=== PATIENT | male | born 1940 | race Two or more races ===

== ENCOUNTER 2017-08-12 12:10 | Emergency (ER) | payer MEDICARE, OTHER ==
[~2017-08-12] VITALS: Ht 170.2 cm; Wt 87.5 kg
--- NOTE | 2017-08-12 12:15 | NUR ---
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 NAD NOTED, VSS, RESP EVEN AND UNLABORED, PT WAS PUT ON MONITOR, WAITING FOR MD DAVENPORT.
[2017-08-12] MEDS ORDERED: PROPOFOL 0 ML IV ONE (13:16)
[2017-08-12 14:20] VITALS: BP 145/89
--- NOTE | 2017-08-12 14:20 | NUR ---
Patient discharged to home in stable condition. Written and verbal after care instructions given. Patient verbalizes understanding of instruction.IV removed. Catheter intact and site benign. Pressure and 4x4 applied to site. No bleeding noted. Prescription given.
== END 2017-08-12 14:21 | disposition home or self-care (01) ==
LOC: ER 12:20
DX: S49.91XA Unspecified injury of right shoulder and upper arm, initial encounter (principal); I10 Essential (primary) hypertension; W01.0XXA Fall on same level from slipping, tripping and stumbling without subsequent striking against object, initial encounter; Y93.89 Activity, other specified; Y92.89 Other specified places as the place of occurrence of the external cause; Y99.8 Other external cause status
CPT/HCPCS: 73030-TC; A4606; J2704; J7030; Z7610

== ENCOUNTER 2018-11-28 14:06 | Inpatient (IN) | payer MEDICARE, OTHER ==
[~2018-11-28] VITALS: Ht 170.2 cm; Wt 77.6 kg
--- NOTE | 2018-11-28 14:15 | NUR ---
BIB RA 39 FROM HOME,AMS DESCRIBED "WOKE UP LATE THIS MORNING AND NOT WANTING TO DO STUFF THAT HE NORMALLY DOES". ON ROOM AIR, BREATHING EVENLY AND UNLABORED. DAUGHTER AT BEDSIDE. CONNECTED TO THE MONITOR AND PULSE OX. KEPT COMFORTABLE, WILL CONTINUE TO MONITOR ACCORDINGLY. JOAQUIN CATH IN PLACED PER MD ORDERED.
[2018-11-28 14:46] LABS: BASOPHILS % (AUTO) 0.1 % (0.0-2.0); EOSINOPHILS % (AUTO) 0.5 % (0.0-6.0)
[2018-11-28 14:51] LABS: HEMATOCRIT 38 % (39-51); HEMOGLOBIN 13.6 g/dL (13.5-17.5); LYMPHOCYTES # (AUTO) 0.7 /CMM (0.8-4.8); LYMPHOCYTES % (AUTO) 7.6 % (20.0-44.0); MEAN CORPUSCULAR HGB CONC 36 g/dl (31.0-36.0); MEAN CORPUSCULAR VOLUME 90 fL (80-96); MONOCYTES # (AUTO) 0.8 /CMM (0.1-1.30); MONOCYTES % (AUTO) 8.4 % (2.0-12.0); NEUTROPHILS # (AUTO) 7.7 /CMM (1.8-8.9); NEUTROPHILS % (AUTO) 83.4 % (43.0-81.0); PLATELET COUNT (AUTO) 160 /CMM (150-450); RED BLOOD CELL COUNT(AUTO) 4.19 MIL/uL (4.5-6.0); WHITE BLOOD COUNT (AUTO) 9.2 K/uL (4.3-11.0)
[2018-11-28 14:53] LABS: CALCIUM, SERUM 8.9 mg/dL (8.5-10.1); CARBON DIOXIDE 27 mmol/L (21-32); CHLORIDE 102 mmol/L (98-107); CREATININE 1.4 mg/dL (0.6-1.3); GLUCOSE 159 mg/dL (74-106); POTASSIUM 3.5 mmol/L (3.5-5.1); SODIUM SERUM 142 mmol/L (136-145); UREA NITROGEN, BLOOD 27 mg/dL (7-18)
--- NOTE | 2018-11-28 14:57 | NUR ---
urine collected and sent to lab
[2018-11-28 15:00] LABS: ALANINE AMINOTRANSFERASE 17 U/L (12-78); ALBUMIN 3.8 g/dL (3.4-5.0); ALKALINE PHOSPHATASE 68 U/L (46-116); ASPARTATE AMINOTRANSFERASE 19 U/L (15-37); BILIRUBIN,DIRECT 0.3 mg/dL (0.0-0.2); BILIRUBIN,TOTAL 2.2 mg/dL (0.2-1.0); LIPASE 119 U/L (73-393); TOTAL PROTEIN, SERUM 6.8 g/dL (6.4-8.2)
[2018-11-28] MEDS ORDERED: IV NS 0.9% 1,000 ML BAG IV ONE (15:00)
[2018-11-28 15:14] LABS: BILIRUBIN,URINE SMALL (NEGATIVE); BLOOD, URINE Negative Ery/uL (NEGATIVE); KETONES,URINE Negative (NEGATIVE); LEUKOCYTE ESTERASE ,URINE Negative (NEGATIVE); NITRITE, URINE Negative (NEGATIVE); PH,URINE 5.5 (5.0-8.0); PROTEIN,URINE 30 mg/dl (NEGATIVE); UGLUCOSE Negative (NEGATIVE)
[2018-11-28 15:15] LABS: APPEARANCE,URINE HAZY (CLEAR); COLOR,URINE DARK YELLOW (YELLOW)
[2018-11-28] MEDS ORDERED: ACETAMINOPHEN 650 MG/SUPP.RECT RC ONE ×2 (15:18→15:30)
[2018-11-28] MEDS ORDERED: CEFTRIAXONE 1GM BAG (ER ONLY) 50 ML IV ONE (15:18)
[2018-11-28 15:26] LABS: BACTERIA,URINE Few /HPF (None Seen); RBC,URINE 0-2 /HPF (0-2); SQUAMOUS EPITHELIAL CELL,UR Few /HPF (None Seen)
[2018-11-28] MEDS ORDERED: CEFTRIAXONE 1GM BAG (ER ONLY) 1 GM/50 ML PIGGYBACK IV ONE (15:30)
--- NOTE | 2018-11-28 16:02 | NUR ---
CALLED [facility]. METER REPAIRER DR LAYNE
--- NOTE | 2018-11-28 17:16 | NUR ---
CALLED HOUSE SUP FOR [facility] BED
--- NOTE | 2018-11-28 17:31 | NUR ---
[facility] BED 105 GIVEN
[2018-11-28] MEDS ORDERED: MEMA10TA PO (17:40)
[2018-11-28] MEDS ORDERED: ROSU10TA2 PO (17:40)
[2018-11-28] MEDS ORDERED: LOSA1TAB42 PO (17:40)
[2018-11-28] MEDS ORDERED: ESCI10TA PO (17:40)
[2018-11-28] MEDS ORDERED: METO-357 PO (17:40)
[2018-11-28] MEDS ORDERED: KETO120S3 TP (17:40)
[2018-11-28] MEDS ORDERED: KETOCONAZOLE CREAM TP (17:42)
[2018-11-28] MEDS ORDERED: COLE3.75 PO (17:42)
[2018-11-28] MEDS ORDERED: DICL1ADH11 TP (17:42)
[2018-11-28] MEDS ORDERED: SOLI5TAB2 PO (17:45)
[2018-11-28] MEDS ORDERED: RIVA1PAT3 TD (17:45)
--- NOTE | 2018-11-28 18:30 | NUR ---
Patient transported to [facility] accompanied by EMT and RN in no apparent distress noted. Eleyn at bedside to assumed care.
--- NOTE | 2018-11-28 18:45 | NUR ---
RN NOTE: RECEIVED PATIENT IN ROOM 105, TRANSFERRED VIA GURNEY ACCOMPANIED BY THE ER NURSE AND EMT TRANSPORT. PATIENT WAS TRANSFERRED TO BED AND CONNECTED THE PATIENT TO THE VOLTAGE INSPECTOR. PATIENT'S , MARCELA AND DAUGHTER WALE WAS PRESENT AT THE BEDSIDE. PER FAMILY'S REQUEST, THEY DO NOT WANT THE PATIENT TO CHANGE TO A CLEAN HOSPITAL GOWN AND REFUSED VITAL SIGNS. (R) HAND 20G IV SITE NOTED PATENT AND INTACT WRAPPED WITH KERLIX. WILL ENDORSE TO PM SHIFT NURSE FOR ADMISSION.
[2018-11-28] MEDS ORDERED: IV NS 0.9% 1,000 ML IV PRN (19:18)
[2018-11-28] MEDS ORDERED: MAGNESIUM HYDROXIDE 30 ML UDC PO PRN (19:30)
[2018-11-28] MEDS ORDERED: ONDANSETRON HCL/PF 4 MG/2 ML VIAL IVP PRN (19:30)
[2018-11-28] MEDS ORDERED: ACETAMINOPHEN 325 MG TABLET PO PRN (19:30)
[2018-11-28] MEDS ORDERED: HYDROCODONE/APAP 5/325MG 1 EACH TABLET PO PRN (19:30)
[2018-11-28] MEDS ORDERED: Z GUARD REMEDY 2 OZ OINT TP PRN (19:30)
[2018-11-28] MEDS ORDERED: HALOPERIDOL LACTATE INJ 5 MG/ML VIAL IM PRN (19:30)
[2018-11-28] MEDS ORDERED: MAG HYDROX/AL HYDROX/SIMETH 30 ML UDC PO PRN (19:30)
[2018-11-28 20:00] VITALS: BP 149/55
[2018-11-28] MEDS ORDERED: DEXTROSE 50%-WATER 50 ML DISP.SYRIN IV PRN (20:00)
[2018-11-28] MEDS: IV D5/ 0.9% NACL 1,000 ML IV PRN (20:11)
[2018-11-28] MEDS: BLOOD SUGAR DIAGNOSTIC 1 EACH STRIP IN SCH (23:52)
[2018-11-29] VITALS: BP 145/75
[2018-11-29 04:00] VITALS: BP 169/70
[2018-11-29] MEDS: BLOOD SUGAR DIAGNOSTIC 1 EACH STRIP IN SCH ×3 (06:02→17:34)
[2018-11-29 06:49] LABS: SERUM AMMONIA < 10 umol/L (11-32)
[2018-11-29 06:59] LABS: ALANINE AMINOTRANSFERASE 17 U/L (12-78); ALBUMIN 3.4 g/dL (3.4-5.0); ALKALINE PHOSPHATASE 59 U/L (46-116); ASPARTATE AMINOTRANSFERASE 24 U/L (15-37); CALCIUM, SERUM 9.1 mg/dL (8.5-10.1); CARBON DIOXIDE 30 mmol/L (21-32); CHLORIDE 105 mmol/L (98-107); CREATININE 1.3 mg/dL (0.6-1.3); GLUCOSE 120 mg/dL (74-106); PHOSPHORUS 2.8 mg/dL (2.5-4.9); POTASSIUM 3.7 mmol/L (3.5-5.1); SODIUM SERUM 141 mmol/L (136-145); TOTAL PROTEIN, SERUM 6.4 g/dL (6.4-8.2); UREA NITROGEN, BLOOD 20 mg/dL (7-18)
[2018-11-29 07:06] LABS: CHOLESTEROL 101 mg/dL (<200); HDL CHOLESTEROL 31 mg/dL (40-60); LDL 67 mg/dL (0-99); THYROID STIMULATING HORMONE 1.133 uIU/mL (0.358-3.74); TRIGLYCERIDES 74 mg/dL (30-150)
[2018-11-29 07:28] LABS: BASOPHILS % (AUTO) 0.1 % (0.0-2.0); EOSINOPHILS % (AUTO) 3.2 % (0.0-6.0); HEMATOCRIT 36 % (39-51); LYMPHOCYTES # (AUTO) 1.1 /CMM (0.8-4.8); LYMPHOCYTES % (AUTO) 15.1 % (20.0-44.0); MEAN CORPUSCULAR HGB CONC 36 g/dl (31.0-36.0); MEAN CORPUSCULAR VOLUME 89 fL (80-96); MONOCYTES # (AUTO) 0.8 /CMM (0.1-1.30); MONOCYTES % (AUTO) 10.7 % (2.0-12.0); NEUTROPHILS # (AUTO) 5.3 /CMM (1.8-8.9); NEUTROPHILS % (AUTO) 70.9 % (43.0-81.0); PLATELET COUNT (AUTO) 145 /CMM (150-450); RED BLOOD CELL COUNT(AUTO) 4.04 MIL/uL (4.5-6.0); WHITE BLOOD COUNT (AUTO) 7.5 K/uL (4.3-11.0)
--- NOTE | 2018-11-29 07:40 | NUR ---
RN [facility] OPENING NOTES RECEIVED REPORT FROM [facility] SHIFT NURSE. PATIENT LAYING IN BED ON ROOM AIR, TOLERATING WELL, NO RESPIRATORY DISTRESS NOTED. TELE MONITOR IN PLACE, AFIB. BED IS IN LOW POSITION, LOCKED, SIDE RAILS UP X 2, CALL LIGHT IN PLACE, SAFETY PRECAUTIONS IN PLACE. PERIPHERAL IV IN RIGHT HAND LJ 20, D5NS INFUSING AT 75ML/HR. PATIENT IS MACEDONIAN SPEAKING BUT IS NON VERBAL AND DISORIENTED. FAMILY AT BEDSIDE. WILL CONTINUE TO MONITOR CLOSELY.
[2018-11-29 08:00] VITALS: BP 180/93
[2018-11-29] MEDS: DOCUSATE SODIUM 100 MG CAPSULE PO SCH ×2 (08:25→17:00)
--- NOTE | 2018-11-29 08:26 | NUR ---
PATIENT IS NON VERBAL AND HAS ALTERED MENTAL STATUS, SCHEDULED 0900 COLACE HELD.
[2018-11-29] MEDS: IV D5/ 0.9% NACL 1,000 ML IV PRN ×2 (09:40→23:31)
[2018-11-29 16:00] VITALS: BP 130/78
--- NOTE | 2018-11-29 16:00 | NUR ---
XI RUIZ DNP AND RELAYED TO HIM PATIENT'S CONCERN ABOUT PLAN OF CARE DESPITE HAVING THEM DISCUSSED WITH THE HELP OF CLAU HOUSTON (FOR TRANSLATION). PER MIKE, HE'LL COME AND SEE THE PATIENT ONCE HE 'S DONE DOING ROUNDS. MADE AWARE
--- NOTE | 2018-11-29 17:00 | NUR ---
PATIENT IS NON VERBAL AND HAS ALTERED MENTAL STATUS, SCHEDULED 1700 COLACE HELD.
--- NOTE | 2018-11-29 19:05 | NUR ---
MS RN NOTES RECEIVED PT BED AWAKE WITH FAMILY AT BEDSIDE. PT DISORIENTED AND NON-VERBAL. RESPIRATIONS EVEN AND UNLABORED WITH NO S/S OF ACUTE DISTRESS OR SOB NOTED. PT ON RA AND TOLERATING WELL. NO S/S OF PAIN AT THIS TIME. PT WITH RHAND #20G RUNNING D5NS @75ML/HR, PATENT AND INTACT. SAFETY MEASURES IN PLACE WITH BED IN LOWEST LOCKED POSITION WITH SIDE RAILS UP X 2. CALL LIGHT WITHIN REACH. WILL CONTINUE TO MONITOR. CALL LIGHT IN PLACE, SAFETY PRECAUTIONS IN PLACE.
--- NOTE | 2018-11-29 19:14 | NUR ---
CHANNEL PROCESS SUPERVISOR CLOSING NOTES AT BEDSIDE STATES THAT AT HOME PATIENT IS VERY AMBULATORY AND ABLE TO ANSWER YES AND NO QUESTIONS, PATIENT IS CONFUSED AND DISORIENTED AT HOME BUT ABLE TO SPEAK CLEARLY BUT WORDS ARE NOT CORRELATED. ENDORSED REPORT TO [facility] SHIFT NURSE. PATIENT LAYING IN BED ON ROOM AIR, NO SIGNS AND SYMPTOMS OF RESPIRATORY DISTRESS, FAMILY AT BEDSIDE. JOAQUIN CATHETER DRAINING YELLOW CLEAR URINE. IV D5NS INFUSING AT 75ML/HR. SITE IS INTACT, CLEAN DRY, NO SIGNS AND SYMPTOMS OF INFILTRATION. PATIENT IS MORE ALERT AND ABLE TO SPEAK SOME WORDS THAN BEFORE. BED IS IN LOW POSITION, LOCKED, CALL LIGHT IN PLACE, SIDE RAILS UP X 2.
[2018-11-29 20:00] VITALS: BP 178/121
--- NOTE | 2018-11-29 20:20 | NUR ---
2020 SWALLOW EVALUATION DONE AT BEDSIDE ORDERED BY MD, NOTED PATIENT POCKETING FOOD AND NOT SWALLOWING WHEN GIVEN SMALL AMOUNT OF WATER AND APPLE SAUCE, AT BEDSIDE AND AWARE. HOB ELEVATED TO 90 DEG FOR ASPIRATION PRECAUTION. NO SIGNS OF ASPIRATION NOTED.
--- NOTE | 2018-11-29 20:25 | NUR ---
MS RN NOTES PT MANUAL BLOOD PRESSURE WAS TAKING @166/92. MIKE RUIZ @BESIDE AND RELAYED INFORMATION. NO NEW ORDERS AT THIS TIME.
--- NOTE | 2018-11-29 21:05 | NUR ---
MS RN NOTES RECHECKED BLOOD PRESSURE 156/86. WILL CONTINUE TO MONITOR.
[2018-11-29 21:06] VITALS: BP 156/86
[2018-11-30] VITALS: BP 154/84
[2018-11-30] MEDS: BLOOD SUGAR DIAGNOSTIC 1 EACH STRIP IN SCH ×5 (00:31→23:42)
[2018-11-30 06:24] LABS: CALCIUM, SERUM 8.7 mg/dL (8.5-10.1); CARBON DIOXIDE 23 mmol/L (21-32); CHLORIDE 108 mmol/L (98-107); CREATININE 1.2 mg/dL (0.6-1.3); GLUCOSE 115 mg/dL (74-106); MAGNESIUM 2.1 mg/dL (1.8-2.4); PHOSPHORUS 3.2 mg/dL (2.5-4.9); POTASSIUM 3.4 mmol/L (3.5-5.1); SODIUM SERUM 144 mmol/L (136-145); UREA NITROGEN, BLOOD 17 mg/dL (7-18)
[2018-11-30 06:55] LABS: BASOPHILS % (AUTO) 0.2 % (0.0-2.0); EOSINOPHILS % (AUTO) 3.8 % (0.0-6.0); HEMATOCRIT 44 % (39-51); HEMOGLOBIN 15.8 g/dL (13.5-17.5); LYMPHOCYTES # (AUTO) 1.1 /CMM (0.8-4.8); LYMPHOCYTES % (AUTO) 16.4 % (20.0-44.0); MEAN CORPUSCULAR HGB CONC 36 g/dl (31.0-36.0); MEAN CORPUSCULAR VOLUME 88 fL (80-96); MONOCYTES # (AUTO) 0.6 /CMM (0.1-1.30); MONOCYTES % (AUTO) 8.4 % (2.0-12.0); NEUTROPHILS # (AUTO) 4.9 /CMM (1.8-8.9); NEUTROPHILS % (AUTO) 71.2 % (43.0-81.0); PLATELET COUNT (AUTO) 112 /CMM (150-450); RED BLOOD CELL COUNT(AUTO) 4.95 MIL/uL (4.5-6.0); WHITE BLOOD COUNT (AUTO) 6.8 K/uL (4.3-11.0)
--- NOTE | 2018-11-30 07:25 | NUR ---
MS RN NOTES PT BED ASLEEP BUT EASILY AWOKEN VERBALLY OR BY TOUCH WITH FAMILY AT BEDSIDE. PT DISORIENTED AND NON-VERBAL. RESPIRATIONS EVEN AND UNLABORED WITH NO S/S OF ACUTE DISTRESS OR SOB NOTED THROUGHOUT SHIFT. PT KEPT CLEAN, DRY, AND COMFORTABLE. PT TURNED Q2 HRS. PT ON RA AND TOLERATING WELL. NO S/S OF PAIN AT THIS TIME. PT WITH RHAND #20G RUNNING D5NS @75ML/HR, PATENT AND INTACT. SAFETY MEASURES IN PLACE WITH BED IN LOWEST LOCKED POSITION WITH SIDE RAILS UP X 2. CALL LIGHT WITHIN REACH. WILL CONTINUE ENDORSE TO ONCOMING NURSE FOR RUTHANN.
[2018-11-30 08:00] VITALS: BP_SYST 160; BP_SYST 200; BP_DIAS 70; BP_DIAS 80
[2018-11-30] MEDS: DOCUSATE SODIUM 100 MG CAPSULE PO SCH ×2 (08:40→17:51)
[2018-11-30] MEDS ORDERED: POTASSIUM CHLORIDE 20 MEQ TAB.PRT.SR PO SCH (10:30)
[2018-11-30] MEDS: POTASSIUM CL. PREMIX PERIPHER. 50 ML IV SCH ×2 (11:44→12:44)
--- NOTE | 2018-11-30 12:08 | NUR ---
PATIENT SEEN BY SPEECH THERAPIST, SEE DIET ORDERS FOR RECS. PATIENT SEEN BY DR. PALACIOS. AWARE OF HIGH BP, RECEIVED ORDERS FOR HYDRALAZINE. AWARE OF HEART RATE, RECEIVED ORDERS FOR TELE. ORDERS TO D/C EMNAI. STATES PATIENT OK FOR PHYSICAL THERAPY.
--- NOTE | 2018-11-30 13:00 | NUR ---
JOAQUIN D/C'D PER MD ORDER, WILL MONITOR FOR URINE OUTPUT
[2018-11-30] MEDS ORDERED: hydrALAZINE HCL 25 MG TABLET PO PRN (13:30)
[2018-11-30] MEDS: IV D5/ 0.9% NACL 1,000 ML IV PRN (15:56)
[2018-11-30 16:00] VITALS: BP 150/70
--- NOTE | 2018-11-30 17:00 | NUR ---
PATIENT VOIDED AFTER REMOVAL OF JOAQUIN. FAMILY REQUESTING HIP XRAY, NOC RN AWARE
--- NOTE | 2018-11-30 19:15 | NUR ---
TELE/RN NOTES RECEIVED PT. LYING IN BED. PT. IS AWAKE, ALERT AND ORIENTED TO SELF. PT. MAKING SOUNDS BUT NOT TALKING. BREATHING EVEN AND UNLABORED ON ROOM AIR. NO SOB, RESPIRATORY DISTRESS OR S/S OF PAIN NOTED AT THIS TIME. PT. WITH EXTERNAL DATABASE OPERATOR PRESENT AND INTACT. PT. CURRENT RHYTHM = SINUS LINO HR 50. PER DAYSHIFT NURSE PT. PULLED OUT IV ACCESS AND WAS UNABLE TO INSERT NEW ACCESS. WILL ATTEMPT TO INSERT NEW IV ACCESS. PT. PRESENT AT BEDSIDE. BED LOCKED AND IN LOWEST POSITION, SIDE RAILS UP X3, BED ALARM ON, CALL LIGHT WITHIN REACH, WILL CONTINUE TO MONITOR.
[2018-11-30 20:00] VITALS: BP 128/77
[2018-12-01] VITALS (25 sets, daily range): BP systolic 94–168; BP diastolic 48–90
[2018-12-01] MEDS: BLOOD SUGAR DIAGNOSTIC 1 EACH STRIP IN SCH ×3 (06:18→18:15)
[2018-12-01 06:48] LABS: CALCIUM, SERUM 8.7 mg/dL (8.5-10.1); CARBON DIOXIDE 25 mmol/L (21-32); CHLORIDE 107 mmol/L (98-107); CREATININE 1.4 mg/dL (0.6-1.3); GLUCOSE 114 mg/dL (74-106); POTASSIUM 3.3 mmol/L (3.5-5.1); SODIUM SERUM 143 mmol/L (136-145); UREA NITROGEN, BLOOD 25 mg/dL (7-18)
--- NOTE | 2018-12-01 06:57 | NUR ---
TELE/RN NOTES PT. IS LYING IN BED RESTING. BREATHING EVEN AND UNLABORED ON ROOM AIR. NO SOB, RESPIRATORY DISTRESS OR S/S OF PAIN NOTED AT THIS TIME AND THROUGHOUT SHIFT. PT. WITH EXTERNAL SHEET METAL ERECTOR PRESENT AND INTACT. PT. CURRENT RHYTHM = SINUS LINO HR 39. PT. WITH RIGHT HAND 20 GAUGE PERIPHERAL IV PRESENT, PATENT AND INTACT ADMINISTERING TO PT. D5NS @ 75 ML/HR. PT. FAMILY MEMBER PRESENT AT BEDSIDE. ALL PT. NEEDS MET. PT. OFFLOADED, TURNED AND REPOSITIONED Q2H AND NEEDED. BED LOCKED AND IN LOWEST POSITION, SIDE RAILS UP X3, BED ALARM ON, CALL LIGHT WITHIN REACH, WILL ENDORSE TO DAYSHIFT NURSE FOR CONTINUITY OF CARE.
[2018-12-01] MEDS: DOCUSATE SODIUM 100 MG CAPSULE PO SCH ×3 (09:00→17:00)
[2018-12-01] MEDS ORDERED: POTASSIUM CHLORIDE 20 MEQ TAB.PRT.SR PO SCH (10:00)
--- NOTE | 2018-12-01 10:35 | NUR ---
MARILUZ OLGUIN NOTES RAPID RESPONSE CALLED FOR THIS PATIENT DUE TO SHALLOW BREATHING, PERIODS OF APNEA AND BRADYCARDIA. HR 32. BP 94/57. DR. RUELAS AND RAMON PALACIOS NOTIFIED. Addendum: 12/01/18 at 1111 by NATAN ROE RN DR. JACKSON NOTIFIED WELL
--- NOTE | 2018-12-01 11:15 | NUR ---
CHILD CARE NURSE RECEIVED PT FROM TELE-TD FOR BRADYCARDIA AND SHORT PERIODS OF APNEA. CURRENTLY, HR 50'S WITH STABLE BP. SPO2 CONSISTENTLY 100%. WILL MONITOR. PACER PADS IN PLACE.
--- NOTE | 2018-12-01 11:15 | NUR ---
RN NOTE PT WAS AWAKE EARLIER, HAD BREAKFAST, FAMILY AT BESIDE AT ALL TIMES, PT WAS FALLING ASLEEP, BUT LATER NOTICED TO HAVE SHALLOW BREATHS WITH PROLONGED PERIODS OF APNEA LASTING 15 -20 SEC. PT DOES NOT OPEN EYES, NO VERBAL RESPONSE, PT GRIMACES TO PAINFUL STIMULATION. HR DROPS TO 38 BPM. RAPID RESPONSE CALLED, DR. RUELAS AND DR. SUZANNE LAYNE. DR PALACIOS DID NOT RESPONDED, PAGED DR TINSLEY, PT TRANSFERRED TO ICU RM [id number]. Addendum: 12/01/18 at 1521 by PRETTY MAYER RN RN NOTE PT'S DAUGHTER WALE, AT BEDSIDE AWARE ABOUT SITUATION AND CONCERNED.
[2018-12-01] MEDS: IV D5/ 0.9% NACL 1,000 ML IV PRN (11:33)
[2018-12-01] MEDS: POTASSIUM CL. PREMIX PERIPHER. 50 ML IV SCH ×7 (11:58→17:57)
[2018-12-01] MEDS ORDERED: POTASSIUM CHLORIDE 10 MEQ/50 ML PREMIXED IVPB FOR PERIPHERAL LINE IV SCH (12:00)
[2018-12-01] MEDS: INSULIN REGULAR, HUMAN 100 UNIT/ML 3 ML VIAL SQ PRN (12:34)
[2018-12-01] MEDS: ALBUTEROL FS 2.5 MG/3 ML VIAL.NEB NEB SCH ×3 (12:49→19:30)
--- NOTE | 2018-12-01 15:00 | NUR ---
RN NOTES RECEIVED REPORT FROM RIMA OLGUIN TO CONTINUITY OF CARE.
[2018-12-01 17:32] LABS: BASOPHILS % (AUTO) 0.4 % (0.0-2.0); EOSINOPHILS % (AUTO) 1.5 % (0.0-6.0); HEMATOCRIT 37 % (39-51); HEMOGLOBIN 13.5 g/dL (13.5-17.5); LYMPHOCYTES # (AUTO) 1.3 /CMM (0.8-4.8); LYMPHOCYTES % (AUTO) 14.1 % (20.0-44.0); MEAN CORPUSCULAR HGB CONC 37 g/dl (31.0-36.0); MEAN CORPUSCULAR VOLUME 88 fL (80-96); MONOCYTES # (AUTO) 0.7 /CMM (0.1-1.30); MONOCYTES % (AUTO) 8.2 % (2.0-12.0); NEUTROPHILS # (AUTO) 6.9 /CMM (1.8-8.9); NEUTROPHILS % (AUTO) 75.8 % (43.0-81.0); PLATELET COUNT (AUTO) 168 /CMM (150-450); RED BLOOD CELL COUNT(AUTO) 4.17 MIL/uL (4.5-6.0); WHITE BLOOD COUNT (AUTO) 9.1 K/uL (4.3-11.0)
--- NOTE | 2018-12-01 17:34 | NUR ---
BROUGHT THE PT. DOWN FOR CT, BP DROPPED, UNABLE TO CONTINUE FOR CT.
[2018-12-01 17:44] LABS: CALCIUM, SERUM 8.9 mg/dL (8.5-10.1); CARBON DIOXIDE 29 mmol/L (21-32); CHLORIDE 107 mmol/L (98-107); CREATININE 1.5 mg/dL (0.6-1.3); GLUCOSE 118 mg/dL (74-106); POTASSIUM 4.1 mmol/L (3.5-5.1); SODIUM SERUM 144 mmol/L (136-145); UREA NITROGEN, BLOOD 28 mg/dL (7-18)
--- NOTE | 2018-12-01 18:00 | NUR ---
RN NOTES RELAYED LACTIC RESULTS=2.[address] PALACIOS WITH NO NEW ORDER. RELAYED POTASSIUM RESULTS=4.[address] PALACIOS WITH ORDER TO HOLD POTASSIUM 30MEQ PER PREVIOUS ORDER. ORDER NOTED AND CARRIED OUT.
--- NOTE | 2018-12-01 19:37 | NUR ---
RN NOTES PATIENT ENDORSED TO NEXT SHIFT IN STABLE CONDITION FOR CONTINUITY OF CARE. WILL CONT TO MONITOR.
--- NOTE | 2018-12-01 19:45 | NUR ---
ICU/MANAGER DESKTOP RECEIVED REPORT FROM DAY NURSE. SEE NURSING FLOW SHEET FOR ASSESSMENT. PT'S SKIN ISSUES ARE ADDRESSED ON FLOWSHEET ALONG WITH INTERVENTIONS TO EACH. PT HAS IVF'S THAT ARE ADDRESSED ON THE IN SPREADSHEET. PT WAS TURNED AND REPOSITIONED FOR COMFORT AND CARE. NO ACUTE DISTRESS SEEN AT THIS TIME. WILL CONTINUE TO MONITOR THIS PT.
--- NOTE | 2018-12-01 20:10 | NUR ---
ICU/EDUCATIONAL DIRECTOR CONSENT WAS GIVEN FOR A PICC LINE. PICC LINE NURSE IS PRESENT AND ANSWERED ALL QUESTIONS ABOUT PICC LINE.
[2018-12-01 20:56] LABS: BILIRUBIN,DIRECT 0.3 mg/dL (0.0-0.2); BILIRUBIN,TOTAL 1.6 mg/dL (0.2-1.0)
--- NOTE | 2018-12-01 21:45 | NUR ---
ICU/MATHEMATICAL TECHNICIAN DR PALACIOS CALLED TO FOLLOW UP WITH STAT HEAD CT, TOLD WHAT HAPPENED ABOUT BP LOW WELL HEART RATE 30'S. DID NOTIFY CHARGE NURSE WHO THEN CALLED RADIOLOGY TO GO AHEAD WITH THE CT.
--- NOTE | 2018-12-01 22:00 | NUR ---
ICU/SHERIFF OFFICER SON CALLED ABOUT PT'S CONDITION, GAVE AN UPDATE. SAID TOMORROW HE WILL BE BACK.
--- NOTE | 2018-12-01 22:36 | NUR ---
ICU/CONTACT LENS ASSISTANT PT DOWN FOR HEAD CT WHICH WAS ORDERED STAT ON DAY SHIFT. ACLS PROTOCOL IS IN PLACE
--- NOTE | 2018-12-01 22:48 | NUR ---
ICU/IRIDOLOGIST PT IS BACK FROM HEAD CT, NOW AWAIT FOR THE RESULTS.
--- NOTE | 2018-12-01 23:31 | NUR ---
ICU/CLOTHING WORKER CT RESULTS ARE RESULTED AND IT'S NEGATIVE. CHARGE NURSE AWARE OF THE RESULTS.
[2018-12-02] VITALS (27 sets, daily range): BP systolic 97–188; BP diastolic 42–103
[2018-12-02] MEDS: BLOOD SUGAR DIAGNOSTIC 1 EACH STRIP IN SCH ×4 (00:02→17:16)
--- NOTE | 2018-12-02 00:29 | NUR ---
ICU/STORE MERCHANDISER BLOOD SUGAR IS 118 THERE IS NO COVERAGE FOR THIS PER MD'S ORDERS AND HOSPITAL PROTOCOL. WILL CONTINUE TO MONITOR THIS PT. PT WAS THEN TURNED AND REPOSITIONED FOR COMFORT AND CARE.
--- NOTE | 2018-12-02 01:10 | NUR ---
ICU/SERVER ASSISTANT PT APPEARS TO BE AWAKE, CONFUSED BUT HISTORY OF DEMENTIA. CHARGE NURSE AWARE. PT SLIGHTLY AGITATED PULLING AT LINES. HAD TO RESTRAINT THE PT DUE TO THIS. WILL MONITOR THIS PT.
--- NOTE | 2018-12-02 02:40 | NUR ---
ICU/SCRAP KETTLE TENDER PT GIVEN AM CARE, NO BM SEEN AT THIS TIME, WILL MONITOR THIS. PT REMAINS ON 2 LITERS VIA N/C WITH SATURATION AT 98-100%. PT WAS TURNED AND REPOSITIONED FOR COMFORT AND CARE. WILL CONTINUE TO MONITOR THIS PT. NO ACUTE DISTRESS SEEN AT THIS TIME.
--- NOTE | 2018-12-02 04:25 | NUR ---
ICU/PRIMARY SCHOOL TEACHER PT IS ALTERED WITH BP OF 160/103, HAD PO 25MG CHANGED TO IV 10MG. NOTIFIED CHARGE NURSE WHO THEN GAVE THIS MEDICATION. WILL CONTINUE TO MONITOR THIS PT.
[2018-12-02] MEDS: hydrALAZINE HCL IV 20 MG VIAL IV PRN (04:54)
[2018-12-02 05:00] LABS: BASOPHILS % (AUTO) 0.1 % (0.0-2.0); EOSINOPHILS % (AUTO) 4.2 % (0.0-6.0); HEMATOCRIT 34 % (39-51); HEMOGLOBIN 12.3 g/dL (13.5-17.5); LYMPHOCYTES % (AUTO) 12.7 % (20.0-44.0); MEAN CORPUSCULAR HGB CONC 36 g/dl (31.0-36.0); MEAN CORPUSCULAR VOLUME 90 fL (80-96); MONOCYTES # (AUTO) 0.7 /CMM (0.1-1.30); MONOCYTES % (AUTO) 8.9 % (2.0-12.0); NEUTROPHILS # (AUTO) 6.1 /CMM (1.8-8.9); NEUTROPHILS % (AUTO) 74.1 % (43.0-81.0); PLATELET COUNT (AUTO) 143 /CMM (150-450); RED BLOOD CELL COUNT(AUTO) 3.78 MIL/uL (4.5-6.0); WHITE BLOOD COUNT (AUTO) 8.2 K/uL (4.3-11.0)
[2018-12-02 05:23] LABS: ALANINE AMINOTRANSFERASE 16 U/L (12-78); ALKALINE PHOSPHATASE 54 U/L (46-116); ASPARTATE AMINOTRANSFERASE 15 U/L (15-37); BILIRUBIN,TOTAL 1.7 mg/dL (0.2-1.0); CALCIUM, SERUM 8.6 mg/dL (8.5-10.1); CARBON DIOXIDE 28 mmol/L (21-32); CHLORIDE 110 mmol/L (98-107); CREATININE 1.2 mg/dL (0.6-1.3); GLUCOSE 133 mg/dL (74-106); MAGNESIUM 2.2 mg/dL (1.8-2.4); PHOSPHORUS 3.2 mg/dL (2.5-4.9); POTASSIUM 3.5 mmol/L (3.5-5.1); SODIUM SERUM 146 mmol/L (136-145); TOTAL PROTEIN, SERUM 6.1 g/dL (6.4-8.2); UREA NITROGEN, BLOOD 27 mg/dL (7-18)
--- NOTE | 2018-12-02 05:44 | NUR ---
ICU/NURSE PRACTITIONER AM LABS WERE DONE, CXR DONE. AWAIT FOR ANY ABNORMAL RESULTS.
[2018-12-02] MEDS: INSULIN REGULAR, HUMAN 100 UNIT/ML 3 ML VIAL SQ PRN ×2 (05:51→11:57)
[2018-12-02] MEDS: IV D5/ 0.9% NACL 1,000 ML IV PRN (06:07)
[2018-12-02] MEDS: ALBUTEROL FS 2.5 MG/3 ML VIAL.NEB NEB SCH ×4 (07:27→19:37)
[2018-12-02] MEDS: POTASSIUM CL. PREMIX PERIPHER. 50 ML IV SCH ×4 (08:21→11:45)
[2018-12-02] MEDS: DOCUSATE SODIUM 100 MG CAPSULE PO SCH ×2 (08:44→17:12)
--- NOTE | 2018-12-02 08:59 | NUR ---
INITIAL TRADEMARK AFFIXER NOTE RCVD AUSTRALIAN SPEAKING PT, BILATERAL SOFT WRIST RESTRAINTS IN PLACE, CIRCULATION CHECKS DONE. SLEEPING, NOW MORE AWAKE, RESPONDS TO NAME, SB ON MONITOR, ON O2 VIA NC WITH GOOD O2 SATURATION, NO SIGNS OF DISTRESS OBSERVED. PT'S AT BEDSIDE UPDATED ON PT'S CONDITION. BEDSIDE NURSING SWALLOW EVALUATION DONE, PT ABLE TO TOLERATE ICE CHIPS, NECTAR CONSISTENCY WATER PER 'S RECOMMENDATION AND APPLE SAUCE. JOAQUIN TO GRAVITY DRAINING YELLOW URINE. NIELS PICC C/D/I/PATENT, NO S/O INFILTRATION/PHLEBITIS OBSERVED. WILL CONTINUE TO MONITOR PT FOR SAFETY AND COMFORT. BED IN LOW AND LOCKED POSITION, CALL LIGHT WITHIN REACH. HEAD OF BED ELEVATED.
[2018-12-02] MEDS ORDERED: IV NS 0.9% 1,000 ML IV PRN (13:30)
[2018-12-02] MEDS ORDERED: IV NS 0.9% 500 ML IV ONE (18:30)
[2018-12-02 18:32] LABS: ABG BASE EXCESS -0.2 mmol/L; ABG OXYGEN SATURATION 98.1 % (92.0-98.5); ABG PCO2 34.6 mmHg (35.0-45.0); ABG PH 7.447 (7.350-7.450); ABG PO2 170.4 mmHg (75.0-100.0); AaDO2 219.3 mmHg; COHb 0.5 % (0.5-1.5); MetHb 0.8 % (0.0-1.5); O2Hb 96.8 % (94.0-97.0); SITE, ABG Right Radial; VENT MODE, BG Simple Mask
--- NOTE | 2018-12-02 19:35 | NUR ---
ICU/BMW SALES CONSULTANT DURING REPORT PT STARTED PULLING OFF GOWN, TOOK OFF ALL LINES. WAS SITTING IN CHAIR NEAR KHRIS. ASKED PT'S WHY SHE DIDN'T TRY TO STOP HIM, SHE SAID SHE CAN'T. THEN TRIED TO APPLY BACK LINES, PT GRABBED HAND AND BENT BACK FINGERS. RESTRAINTS WERE APPLIED TO PREVENT PT FROM PULLING AT LINES AND ALSO TO ALLOW RT TO GIVE BREATHING TREATMENT. BECAUSE HE PULLED THIS OFF TOO.
--- NOTE | 2018-12-02 21:00 | NUR ---
ICU/DRAFTER APPRENTICE PT GIVEN PM CARE, NO BM SEEN AT THIS TIME, WILL MONITOR THIS. PT REMAINS ON ROOM AIR WITH SATURATION AT 98-100%. PT WAS TURNED AND REPOSITIONED FOR COMFORT AND CARE. WILL CONTINUE TO MONITOR THIS PT. NO ACUTE DISTRESS SEEN AT THIS TIME.
--- NOTE | 2018-12-02 23:30 | NUR ---
ICU/AUTO TIRE RECAPPER BLOOD SUGAR IS 125 THERE IS NO COVERAGE FOR THIS PER MD'S ORDERS AND HOSPITAL PROTOCOL. WILL CONTINUE TO MONITOR THIS PT. PT WAS THEN TURNED AND REPOSITIONED FOR COMFORT AND CARE.
[2018-12-03] VITALS (15 sets, daily range): BP systolic 115–169; BP diastolic 42–107
[2018-12-03] MEDS: BLOOD SUGAR DIAGNOSTIC 1 EACH STRIP IN SCH ×5 (00:26→23:52)
--- NOTE | 2018-12-03 02:35 | NUR ---
ICU/SENIOR TABLEAU DEVELOPER PT GIVEN AM CARE, NO BM SEEN AT THIS TIME, WILL MONITOR THIS. PT REMAINS ON ROOM AIR WITH SATURATION AT 98-100%. PT WAS TURNED AND REPOSITIONED FOR COMFORT AND CARE. WILL CONTINUE TO MONITOR THIS PT. NO ACUTE DISTRESS SEEN AT THIS TIME.
--- NOTE | 2018-12-03 04:10 | NUR ---
ICU/BUFFER MACHINE AM LABS WERE DONE, CXR DONE. AWAIT FOR ANY ABNORMAL RESULTS.
[2018-12-03 04:48] LABS: BASOPHILS % (AUTO) 0.3 % (0.0-2.0); EOSINOPHILS % (AUTO) 4.2 % (0.0-6.0); HEMATOCRIT 31 % (39-51); HEMOGLOBIN 11.3 g/dL (13.5-17.5); LYMPHOCYTES # (AUTO) 0.9 /CMM (0.8-4.8); LYMPHOCYTES % (AUTO) 10.9 % (20.0-44.0); MEAN CORPUSCULAR HGB CONC 36 g/dl (31.0-36.0); MEAN CORPUSCULAR VOLUME 89 fL (80-96); MONOCYTES # (AUTO) 0.7 /CMM (0.1-1.30); MONOCYTES % (AUTO) 8.5 % (2.0-12.0); NEUTROPHILS # (AUTO) 6.3 /CMM (1.8-8.9); NEUTROPHILS % (AUTO) 76.1 % (43.0-81.0); PLATELET COUNT (AUTO) 139 /CMM (150-450); RED BLOOD CELL COUNT(AUTO) 3.47 MIL/uL (4.5-6.0); WHITE BLOOD COUNT (AUTO) 8.3 K/uL (4.3-11.0)
[2018-12-03 04:59] LABS: CALCIUM, SERUM 8.6 mg/dL (8.5-10.1); CARBON DIOXIDE 25 mmol/L (21-32); CHLORIDE 110 mmol/L (98-107); CREATININE 1.1 mg/dL (0.6-1.3); GLUCOSE 118 mg/dL (74-106); PHOSPHORUS 3.3 mg/dL (2.5-4.9); POTASSIUM 3.5 mmol/L (3.5-5.1); SODIUM SERUM 145 mmol/L (136-145); UREA NITROGEN, BLOOD 24 mg/dL (7-18)
[2018-12-03] MEDS: hydrALAZINE HCL IV 20 MG VIAL IV PRN (05:17)
--- NOTE | 2018-12-03 05:36 | NUR ---
ICU/COTTON FACTOR PT HAS BP OF 165/75, BLOOD PRESSURE HAD SLOWLY INCREASING. NOTIFIED CHARGE NURSE WHO GAVE HYDRALAZINE 10MG IVP PRN FOR SBP GREATER THAN 160. WILL CONTINUE TO MONITOR THIS PT AND HIS BLOOD PRESSURE.
[2018-12-03] MEDS: ALBUTEROL FS 2.5 MG/3 ML VIAL.NEB NEB SCH ×4 (06:51→19:19)
[2018-12-03] MEDS: LISINOPRIL (10MG) 10 MG TABLET PO SCH (09:21)
[2018-12-03] MEDS: DOCUSATE SODIUM 100 MG CAPSULE PO SCH ×2 (09:21→16:59)
--- NOTE | 2018-12-03 10:45 | NUR ---
GATE PERSONPARISH NURSE NOTES REPORT GIVEN BY AWAISSECURITY NURSE.RECEIVED PT FROM ICU TO ROOM 112-1.PT IS SLEEPY AND CONFUSED.FAMILY IS AT BEDSIDE ON TELE HR IS 40 WITH SB.NO SOB AND ACUTE DISTRESS NOTED.JOAQUIN CATH IS IN PLACE.PICC LINE IS ON RIGHT UA.SITE IS CLEAN,DRY AND INTACT.NO INFILTRATION NOTED.B/L SOFT WRIST RESTRAINTS PRESENT.SKIN IS INTACT.BED IS IN LOW POSITION AND LOCKED.CALL LIGHT IS WITHIN REACH.WILL CONTINUE TO MONITOR THE PT CLOSELY.
[2018-12-03] MEDS ORDERED: QUETIAPINE FUMARATE 25 MG TABLET PO PRN (13:30)
[2018-12-03] MEDS: INSULIN REGULAR, HUMAN 100 UNIT/ML 3 ML VIAL SQ PRN (17:01)
--- NOTE | 2018-12-03 18:36 | NUR ---
UNIT CONTROL CLERK CLOSING NOTES PT IS LYING ON BED WITH B/L SOFT WRIST RESTRAINTS.TOLERATING WELL.ON ROOM AIR,TOLERATING WELL.NO SOB AND ACUTE DISTRESS NOTED.ALL THE DUE MEDS ARE GIVEN.RESPIRATION IS EVEN AND NONLABORED.WILL ENDORSE TO HOUSE DETECTIVE RN FOR RUTHANN.
--- NOTE | 2018-12-03 19:40 | NUR ---
RN INITIAL NOTES: RECEIVED REPORT FORM SAL OLGUIN. PT IN BED, AWAKE, CONFUSED, MET WITH FAMILY AT BED SIDE. RECEIVED PT WITH BILATERAL SOFT WRIST RESTRAINT IN PLACED, RADIAL PULSES PALPABLE AND INTACT, WITH GOOD CAPILLARY REFILL NOTED, PT ABLE TO MOVE AND WIGGLE ARMS AND HANDS. PT TRYING TO PULL OUT LINES AND INTERRUPT WITH CARE. PT HAS PACER ATTACHED, WITH MD ORDER. ON TELE SINUS LINO HR 40, LOWEST 39. MD AWARE. JOAQUIN CATHETER IN PLACED DRAINING INTO YELLOW COLORED URINE. BLE OFFLOADED ON PILLOWS. DISCUSSED PLAN OF CARE TO PT AND FAMILY. SAFETY PRECAUTIONS FOR FALL INITIATED, CALL LIGHT IN REACH, WILL CONTINUE MONITORING PT.
--- NOTE | 2018-12-03 20:30 | NUR ---
RN NOTES: EXTERNAL PACER ATTACHED TO PT, CHECKED WITH STEAM GENERATING POWERPLANT MECHANIC
--- NOTE | 2018-12-03 20:41 | NUR ---
RN NOTES: REPOSITION PT WITH THE HELP OF RAT FARMER
--- NOTE | 2018-12-03 22:30 | NUR ---
RN NOTES: FAMILY FEEDING PT WITH APPLE SAUCE AND THICKENED CRANBERRY
--- NOTE | 2018-12-03 23:10 | NUR ---
RN NOTES: ASSISTED LINE CLEARANCE FOREMAN IN PROVIDING BED BATH TO PT, WOUND CARE PROVIDED,
--- NOTE | 2018-12-03 23:53 | NUR ---
ACCU CHECK 125: BLOOD SUGAR 125, NO INSULIN COVERAGE GIVEN PER SLIDING SCALE, FAMILY AT BED SIDE.
[2018-12-04] VITALS: BP 134/53
--- NOTE | 2018-12-04 02:00 | NUR ---
RN NOTES: SEEN SLEEPING AT THIS TIME, FAMILY STAY AT BED SIDE
[2018-12-04 04:00] VITALS: BP 133/56
--- NOTE | 2018-12-04 04:11 | NUR ---
RN NOTES: PACER PADS REMAINS IN PLACE
[2018-12-04] MEDS: BLOOD SUGAR DIAGNOSTIC 1 EACH STRIP IN SCH ×3 (05:21→17:50)
--- NOTE | 2018-12-04 05:21 | NUR ---
ACCU CHECK: BLOOD SUGAR RESULT 109, NO INSULIN COVERAGE GIVEN PER SLIDING SCALE. PT AWAKE, PLAYING WITH A ROLLED WASH CLOTH. FAMILY STAYED AT BED SIDE.
--- NOTE | 2018-12-04 06:55 | NUR ---
RN CLOSING NOTES: PT REMAINS CONFUSED, ON RA SPO2 RANGING 95-97%. NIELS PICC LINE REMAINS PATENT AND FLUSHING WELL, ALL PORTS WITH GOOD BLOOD RETURN NOTED. BILATERAL SOFT WRIST RESTRAINT REMAINS IN PLACED, RADIAL PULSES PALPABLE, GOOD CAPILLARY REFILL NOTED, PT ABLE TO MOVE AND WIGGLE ARMS, NO S/S OF IMPEDIMENT IN CIRCULATION NOTED. FAMILY AT BED SIDE. JOAQUIN CATHETER REMAINS IN PLACED, BAG EMPTIED BY SUPERVISOR BOARDING. PT'S HR REMAINS ON LOW SIDE, TELE MONITORING SINUS LINO HR 30-50'S , LOWEST 30. PACER PADS ATTACHED FOR EMERGENCY. VS REMAINS STABLE, NEEDS ATTENDED. SAFETY PRECAUTIONS FOR FALL REMAINS ENGAGED, CALL LIGHT IN REACH, WILL ENDORSE TO DAY RN FOR CONTINUITY OF CARE.
--- NOTE | 2018-12-04 07:36 | NUR ---
LEGAL SUMMER INTERN OPENING NOTES RECEIVED PATIENT AWAKE IN BED IN NO ACUTE SIGNS OF DISTRESS. HOB ELEVATED, FAMILY AT BEDSIDE. A/OX1. CONFUSED , NO SIGNS OF PAIN OR ANY DISCOMFORTS NOTED AT THIS TIME. BILATERAL RESTRAIN SOFT WRIST RESTRAIN IN PLACE. RADIAL PULSES PALPABLE, CAPILLARY REFILL LESS THAN 3 S3EC. ON ROOM AIR, BREATHING EVEN AND UNLABORED. ON TELE MONITORING WITH SB WITH HR ON 36-48. PACER PATCH IN PLACE IN CASE OF EMERGENCY. 3 LUMEN PICCLINE NIELS PATENT, INTACT AND FLUSHES WELL. JOAQUIN IN PLACE AND NOTED WITH CLEAR YELLOW URINE OUTPUT. BED IN LOW LOCKED POSITION WITH SIDE RAILS UP X2. CALL LIGHT WITHIN REACH. WILL CONTINUE TO MONITOR.
[2018-12-04 07:37] LABS: BASOPHILS % (AUTO) 0.4 % (0.0-2.0); EOSINOPHILS % (AUTO) 7.4 % (0.0-6.0); HEMATOCRIT 32 % (39-51); HEMOGLOBIN 11.8 g/dL (13.5-17.5); LYMPHOCYTES # (AUTO) 0.9 /CMM (0.8-4.8); LYMPHOCYTES % (AUTO) 13.5 % (20.0-44.0); MEAN CORPUSCULAR HGB CONC 36 g/dl (31.0-36.0); MEAN CORPUSCULAR VOLUME 89 fL (80-96); MONOCYTES # (AUTO) 0.6 /CMM (0.1-1.30); MONOCYTES % (AUTO) 8.5 % (2.0-12.0); NEUTROPHILS # (AUTO) 4.8 /CMM (1.8-8.9); NEUTROPHILS % (AUTO) 70.2 % (43.0-81.0); PLATELET COUNT (AUTO) 157 /CMM (150-450); RED BLOOD CELL COUNT(AUTO) 3.64 MIL/uL (4.5-6.0); WHITE BLOOD COUNT (AUTO) 6.9 K/uL (4.3-11.0)
[2018-12-04] MEDS: ALBUTEROL FS 2.5 MG/3 ML VIAL.NEB NEB SCH ×4 (07:51→19:26)
[2018-12-04 07:52] LABS: ALANINE AMINOTRANSFERASE 16 U/L (12-78); ALBUMIN 2.8 g/dL (3.4-5.0); ALKALINE PHOSPHATASE 46 U/L (46-116); ASPARTATE AMINOTRANSFERASE 15 U/L (15-37); BILIRUBIN,TOTAL 1.2 mg/dL (0.2-1.0); CALCIUM, SERUM 8.7 mg/dL (8.5-10.1); CARBON DIOXIDE 26 mmol/L (21-32); CHLORIDE 108 mmol/L (98-107); CREATININE 1.1 mg/dL (0.6-1.3); GLUCOSE 109 mg/dL (74-106); PHOSPHORUS 3.3 mg/dL (2.5-4.9); POTASSIUM 3.5 mmol/L (3.5-5.1); SODIUM SERUM 144 mmol/L (136-145); UREA NITROGEN, BLOOD 22 mg/dL (7-18)
[2018-12-04 08:00] VITALS: BP 159/73
[2018-12-04] MEDS: DOCUSATE SODIUM 100 MG CAPSULE PO SCH ×2 (09:11→17:32)
[2018-12-04] MEDS: LISINOPRIL (10MG) 10 MG TABLET PO SCH (09:11)
--- NOTE | 2018-12-04 09:55 | NUR ---
RN NOTES PT BP 159/73 AND LOW HR OF [address] RUELAS SEEN PT AND SAID IT'S OK TO GIVE THE BP MED LISINOPRIL. WILL CONTINUE TO MONITOR CLOSELY.
--- NOTE | 2018-12-04 10:20 | NUR ---
WOUND CARE CONSULT: PT PRESENTS WITH BRUISE NEAR LEFT EYE AREA, PRESENT ON ADMISSION. 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 RECOMMENDATIONS MADE FOR SKIN PROTECTION. DISCUSSED WITH NURSING STAFF. EMANI NELSON NOTED. WILL SEE PRN. EDWARDS IN AGREEMENT WITH PLAN OF CARE. CURRENT TONNY SCORE IS 15. Addendum: 12/04/18 at 1023 by SHENG ZAVALA WNDNU Amended: Links added.
[2018-12-04 12:00] VITALS: BP_SYST 129; BP_SYST 133; BP_DIAS 59; BP_DIAS 68
--- NOTE | 2018-12-04 12:15 | NUR ---
RN NOTE PT BS 141. AT BEDSIDE AND REFUSED TO GIVE REGULAR INSULIN COVERAGE. WILL CONTINUE TO MONITOR.
[2018-12-04] MEDS: MODAFINIL 100 MG TABLET PO SCH (12:29)
[2018-12-04] MEDS: INSULIN REGULAR, HUMAN 100 UNIT/ML 3 ML VIAL SQ PRN (12:30)
[2018-12-04 16:00] VITALS: BP_SYST 129; BP_SYST 133; BP_DIAS 59; BP_DIAS 68
--- NOTE | 2018-12-04 18:52 | NUR ---
RN CLOSING NOTES: PT IN BED, AWAKE, CONFUSED, FAMILY MEMBER AT BED SIDE. ON TELE MONITOR WITH SR, SB HR 48-72, MD IS AWARE. BILATERAL SOFT WRIST RESTRAINT IN PLACED, RADIAL PULSES PALPABLE AND INTACT, WITH GOOD CAPILLARY REFILL NOTED, PT ABLE TO MOVE AND WIGGLE ARMS AND HANDS. PT HAS PACER ATTACHED, MD AWARE. JOAQUIN CATHETER IN PLACED DRAINING INTO YELLOW COLORED URINE. BLE OFFLOADED ON PILLOWS. DISCUSSED PLAN OF CARE TO PT AND FAMILY. SAFETY PRECAUTIONS FOR FALL MAINTAINED. CALL LIGHT IN REACH, WILL CONTINUE MONITORING PT.
--- NOTE | 2018-12-04 19:10 | NUR ---
SHAPING MACHINE TENDER OPENING NOTES PATIENT IN BED, AWAKE, CONFUSED, FAMILY AT BEDSIDE. ON TELE MONITOR WITH SINUS LINO WITH HR 40S, PER REPORT MD AWARE. BILATERAL SOFT WRIST RESTRAINT IN PLACE FOR PATIENT SAFETY, RADIAL PULSES PALPABLE AND INTACT, WITH GOOD CAPILLARY REFILL NOTED. PT HAS PACER ATTACHED, PER REPORT MD AWARE. JOAQUIN CATHETER IN PLACE AND OFF THE FLOOR, DRAINING YELLOW URINE NOTED. BLE OFFLOADED ON PILLOWS. DISCUSSED PLAN OF CARE TO PT AND FAMILY. SAFETY MEASURES IN PLACE; CALL LIGHT WITHIN REACH, BED LOCKED AND IN LOW POSITION, WILL CONTINUE MONITORING PATIENT CLOSELY.
[2018-12-04 20:00] VITALS: BP 135/60
[2018-12-05] VITALS: BP 142/58
[2018-12-05] MEDS: BLOOD SUGAR DIAGNOSTIC 1 EACH STRIP IN SCH ×5 (00:07→18:09)
--- NOTE | 2018-12-05 02:45 | NUR ---
PIANO BENCH ASSEMBLER NOTES ARVIND FROM [facility] CALLED TO INFORM THAT PT STILL DOES NOT HAVE BED AVAILABLE AND COOKING CASING AND DRYING SUPERVISOR AND DR. CERVANTES (POST MANAGER) NEEDS TO CALL THEM. WILL ENDORSE TO AM RN.
[2018-12-05 04:00] VITALS: BP 134/54
--- NOTE | 2018-12-05 07:20 | NUR ---
SWIMMING POOL INSTALLER CLOSING NOTES PATIENT IN BED, AWAKE, CONFUSED, FAMILY AT BEDSIDE. NO ACUTE CHANGES THROUGHOUT SHIFT. ON TELE MONITOR WITH SINUS LINO WITH HR 40S. BILATERAL SOFT WRIST RESTRAINT IN PLACE FOR PATIENT SAFETY, RADIAL PULSES PALPABLE AND INTACT, WITH GOOD CAPILLARY REFILL NOTED. PT HAS PACER ATTACHED, PER REPORT MD AWARE. JOAQUIN CATHETER IN PLACE AND OFF THE FLOOR, DRAINING TEA COLORED URINE NOTED. BLE OFFLOADED ON PILLOWS. DISCUSSED PLAN OF CARE TO PT AND FAMILY. SAFETY MEASURES IN PLACE; CALL LIGHT WITHIN REACH, BED LOCKED AND IN LOW POSITION, ENDORSED TO AM RN FOR RUTHANN.
--- NOTE | 2018-12-05 07:30 | NUR ---
SHEET METAL CONTRACTOR OPENING NOTES RECEIVED REPORT FROM [facility] SHIFT NURSE [place]. PATIENT LAYING IN BED AWAKE, CONFUSED, FAMILY BY SIDE. ON ROOM AIR, RESPIRATIONS ARE EASY AND UNLABORED, NO SIGNS OF RESPIRATORY DISTRESS NOTED. BILATERAL SOFT WRIST RESTRAINT IN PLACE FOR PATIENT SAFETY, SKIN CIRCULATION CHECKED, CAPILLAY REFILL <3. SAFETY MEASURES IN PLACE; CALL LIGHT WITHIN REACH, BED LOCKED AND IN LOW POSITION. DISCUSSED PLAN OF CARE TO PT AND FAMILY.
[2018-12-05 07:40] LABS: ALANINE AMINOTRANSFERASE 21 U/L (12-78); ALKALINE PHOSPHATASE 50 U/L (46-116); ASPARTATE AMINOTRANSFERASE 19 U/L (15-37); BILIRUBIN,TOTAL 1.2 mg/dL (0.2-1.0); CALCIUM, SERUM 8.9 mg/dL (8.5-10.1); CARBON DIOXIDE 28 mmol/L (21-32); CHLORIDE 107 mmol/L (98-107); CREATININE 1.2 mg/dL (0.6-1.3); GLUCOSE 102 mg/dL (74-106); MAGNESIUM 2.1 mg/dL (1.8-2.4); PHOSPHORUS 3.6 mg/dL (2.5-4.9); POTASSIUM 3.7 mmol/L (3.5-5.1); SODIUM SERUM 143 mmol/L (136-145); TOTAL PROTEIN, SERUM 6.3 g/dL (6.4-8.2); UREA NITROGEN, BLOOD 22 mg/dL (7-18)
[2018-12-05 07:41] LABS: BASOPHILS % (AUTO) 0.2 % (0.0-2.0); EOSINOPHILS % (AUTO) 7.2 % (0.0-6.0); HEMATOCRIT 33 % (39-51); HEMOGLOBIN 12.2 g/dL (13.5-17.5); LYMPHOCYTES # (AUTO) 1.1 /CMM (0.8-4.8); LYMPHOCYTES % (AUTO) 15.6 % (20.0-44.0); MEAN CORPUSCULAR HGB CONC 37 g/dl (31.0-36.0); MEAN CORPUSCULAR VOLUME 88 fL (80-96); MONOCYTES # (AUTO) 0.6 /CMM (0.1-1.30); MONOCYTES % (AUTO) 8.5 % (2.0-12.0); NEUTROPHILS # (AUTO) 4.9 /CMM (1.8-8.9); NEUTROPHILS % (AUTO) 68.5 % (43.0-81.0); PLATELET COUNT (AUTO) 178 /CMM (150-450); RED BLOOD CELL COUNT(AUTO) 3.76 MIL/uL (4.5-6.0); WHITE BLOOD COUNT (AUTO) 7.1 K/uL (4.3-11.0)
[2018-12-05 08:00] VITALS: BP_SYST 125; BP_SYST 187; BP_DIAS 70; BP_DIAS 82
--- NOTE | 2018-12-05 08:23 | NUR ---
RN NOTE: RECEIVED AN ORDER FROM TONYA AKERS NP REGARDING THE CHANGE OF THE BLOOD SUGAR CHECK FREQUENCY FROM Q6HR TO ACHS. ORDER NOTED AND CARRIED OUT. PRESENT AT THE BEDSIDE WAS INFORMED.
[2018-12-05] MEDS: ALBUTEROL FS 2.5 MG/3 ML VIAL.NEB NEB SCH ×4 (08:28→19:59)
[2018-12-05] MEDS ORDERED: INSULIN REGULAR, HUMAN 100 UNIT/ML 3 ML VIAL SQ PRN (08:30)
[2018-12-05] MEDS ORDERED: DEXTROSE 50%-WATER 50 ML DISP.SYRIN IV PRN (08:30)
[2018-12-05] MEDS: LISINOPRIL (10MG) 10 MG TABLET PO SCH (08:55)
[2018-12-05] MEDS: DOCUSATE SODIUM 100 MG CAPSULE PO SCH ×2 (08:55→17:00)
[2018-12-05] MEDS: MODAFINIL 100 MG TABLET PO SCH (09:03)
[2018-12-05] MEDS ORDERED: LISI10TA59 PO (11:50)
[2018-12-05] MEDS ORDERED: MODA100T14 PO (11:50)
[2018-12-05 12:00] VITALS: BP 126/61
[2018-12-05 16:00] VITALS: BP 114/46
--- NOTE | 2018-12-05 17:29 | NUR ---
RN NOTE: RECEIVED AN ORDER FROM TONYA AKERS NP REGARDING THE PATIENT'S DIET ORDER. DUE TO THE SMALL BOWEL FOLLOW-THROUGH ORDER THE PATIENT NEEDED TO BE ON NPO FOR AT LEAST 6-8 HR PER RADIOLOGY DEPARTMENT. ORDER NOTED AND CARRIED OUT. MEMBERSHIP COORDINATOR WAS INFORMED THAT PATIENT'S LAST MEAL WAS AT 2PM TODAY. MARCELA WAS AT THE BEDSIDE AND Tiffanie BEAN ([place] SPEAKING NURSE) TO TRANSLATE TO THE MARCELA.
[2018-12-05] MEDS ORDERED: NA PHOS,M-B/NA PHOS,DI-BA 1 EA ENEMA RC PRN (17:30)
--- NOTE | 2018-12-05 17:30 | NUR ---
RN NOTE: PATIENT'S MARCELA CAME UP TO THE NURSING STATION AND KEPT QUESTIONING AND ASKING WHY THE SMALL BOWEL FOLLOW-THROUGH NEEDED TO BE PERFORM INSTEAD OF GIVING AN ENEMA TO THE PATIENT. A DETAILED EXPLANATION TO HER WAS GIVEN WITH THE PRESENCE OF THE [place] SPEAKING NURSE Tiffanie DUTTA RN TO TRANSLATE. SPOKE WITH CORTES (PATIENT'S DAUGHTER) OVER THE PHONE AND GAVE HER THE SAME EXACT EXPLANATION OF THE REASON FOR THE TEST. SHE WAS ALSO INFORMED OF THE KUB RESULT THAT MADE Tiara AKERS NP ORDER THE SMALL BOWEL FOLLOW-THROUGH. CORTES, DAUGHTER UNDERSTOOD THE REASON OF THE TEST AND HAD NO QUESTION AND SHE SAID THAT SHE WANTED TO SPEAK WITH HER MOTHER MARCELA AGAIN. TELEPHONE WAS HANDED TO MARCELA AND ACCORDING TO Tiffanie DUTTA RN THE MARCELA STILL INSISTED TO GET AN ENEMA ORDER INSTEAD OF GETTING THE SMALL BOWEL FOLLOW-THROUGH TEST. Tiara AKERS NP WAS INFORMED THAT PER MARCELA SHE STRONGLY REFUSED TO HAVE THE TEST DONE AND WANTED TO HAVE AN ENEMA. Tiara AKERS NP ORDERED REGLAN AND ENEMA. AND PER Tiara AKERS NP IF THE PATIENT WOULD HAVE A BOWEL MOVEMENT, OK TO PROCEED WITH THE DISCHARGE TO HOME INITIALLY PLANNED. DR. RUELAS (BUTTON CUTTER), OSWALD Schneider NP AND DR. CERVANTES ([facility]TON CUTTER AT [facility]) ALREADY SPOKE WITH EACH OTHER OVER THE PHONE THIS MORNING REGARDING THE CASE OF THE PATIENT. AND ALL 3 MDS AGREED THAT PATIENT CAN GO HOME AND THERE'S NO NEED FOR AN ACUTE HOSPITAL TRANSFER TO [facility].
[2018-12-05] MEDS ORDERED: METOCLOPRAMIDE HCL 10 MG/2 ML VIAL IV SCH (18:00)
--- NOTE | 2018-12-05 18:25 | NUR ---
EXPLAINED THE PURPOSE AND RATIONAL OF XR SMALL BOWEL FOLLOW THROUGH TO PATIENT'S . PATIENT'S REFUSED THE XR SMALL BOWEL FOLLOW THROUGH TEST AND REQUESTED ENEMA. OBTAINED ORDERS FROM OSWALD LACKEY FOR FLEET ENEMA, ADMINISTERED THE FLEET ENEMA PRESCRIBED. PATIENT TOLERATED PROCEDURE WELL, HAD BOWEL MOVEMENT WITHIN 5 MINUTES. OSWALD LACKEY SPECIFIED IN HER ORDER THAT PATIENT CAN BE DISCHARGED IF HE HAS A BOWEL MOVEMENT AFTER ENEMA. NOTIFIED.
[2018-12-05 20:00] VITALS: BP 140/64
--- NOTE | 2018-12-05 22:10 | NUR ---
RN NOTE PATIENT LEFT IN STABLE CONDITION, NO RESPIRATORY DISTRESS NOTED, NO PAIN OR DISCOMFORT NOTED, AWAKE, PICC LINE FROM RIGHT UPPER ARM REMOVED, TIP IS INTACT, NO S/S OF BLEEDING NOTED, JOAQUIN CATHETER REMOVED, NO PAIN OR DISCOMFORT NOTED, BELONGING'S LIST SIGNED AND PLACED IN THE CHART, PICTURES OF THE SKIN PLACED IN THE CHART, PATIENT WAS TRANSFERRED WITH ALL SAFETY MEASURES, ACCOMPANIED BY FAMILY FRIEND AND A , VITAL SIGNS STABLE
== END 2018-12-05 22:08 | disposition home health service (06) | DRG 917 ==
LOC: ER 14:08 → TELE-TD 17:40 → MEDSG1 11-29 08:40 → TELE1 12-01 07:39 → ICU 12-01 11:10 → TELE1 12-03 10:10
PROVIDERS: ADMIT Hospitalist; ATTEND Nurse Practitioner Acute Care
PROC: 02HV33Z Insertion of Infusion Device into Superior Vena Cava, Percutaneous Approach (ICD-10-PCS; principal; 2018-12-01)
PROC: B548ZZA Ultrasonography of Superior Vena Cava, Guidance (ICD-10-PCS; 2018-12-01)
DX: T42.4X1A Poisoning by benzodiazepines, accidental (unintentional), initial encounter (principal); G92 Toxic encephalopathy; I21.A1 Myocardial infarction type 2; N17.0 Acute kidney failure with tubular necrosis; I42.9 Cardiomyopathy, unspecified; R06.3 Periodic breathing; Y92.009 Unspecified place in unspecified non-institutional (private) residence as the place of occurrence of the external cause; E86.9 Volume depletion, unspecified; G30.9 Alzheimer's disease, unspecified; F02.80 Dementia in other diseases classified elsewhere, unspecified severity, without behavioral disturbance, psychotic disturbance, mood disturbance, and anxiety; E78.5 Hyperlipidemia, unspecified; E87.6 Hypokalemia; I25.10 Atherosclerotic heart disease of native coronary artery without angina pectoris; Z95.5 Presence of coronary angioplasty implant and graft; I10 Essential (primary) hypertension; R74.0 Nonspecific elevation of levels of transaminase and lactic acid dehydrogenase [LDH]; I25.2 Old myocardial infarction; I34.0 Nonrheumatic mitral (valve) insufficiency; W19.XXXA Unspecified fall, initial encounter; S00.12XD Contusion of left eyelid and periocular area, subsequent encounter; W18.30XD Fall on same level, unspecified, subsequent encounter; R00.1 Bradycardia, unspecified; F09 Unspecified mental disorder due to known physiological condition; I44.0 Atrioventricular block, first degree
CPT/HCPCS: 36415; 36600; 70450-TC; 71045-TC; 74018; 80048-TC; 80053-TC; 80061-TC; 80076-TC; 80305; 81000-TC; 82140-TC; 82247-TC; 82248-TC; 82803-TC; 82962-TC; 83605-TC; 83690-TC; 83735-TC; 84100-TC; 84443-TC; 84484-TC; 85025-TC; 85730-TC; 87040-TC; 87081-TC; 87086-TC; 92526; 92611-TC; 93307-TC; 94760-TC; 94799-TC; 97112-TC; 97116-TC; 97530-TC; C1751; G0378; G0480; J0360; J0696; J1815; J2765; J3480; J3490; J7030; J7040; J7042

== ENCOUNTER 2019-03-11 18:31 | Emergency (ER) | payer MEDICARE, OTHER ==
[~2019-03-11] VITALS: Ht 170.2 cm; Wt 73.0 kg
[~2019-03-11 18:31] MED LIST: COLE3.75 PO; DICL1ADH11 TP; KETO120S3 TP; KETOCONAZOLE CREAM TP; LISI-605 PO; MODA100T14 PO; SOLI5TAB2 PO
[2019-03-11] MEDS ORDERED: IV NS 0.9% 500 ML BAG IV ONE (19:00)
--- NOTE | 2019-03-11 19:20 | NUR ---
CORRY w/ report from the family that pt looks weaker than normal today. 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
[2019-03-11 19:33] LABS: CREATININE 1.3 mg/dL (0.6-1.3); POTASSIUM 4.3 mmol/L (3.5-5.1)
[2019-03-11 19:38] LABS: BASOPHILS # (AUTO) 0.1 /CMM (0.0-0.2); BASOPHILS % (AUTO) 0.9 % (0.0-2.0); EOSINOPHILS % (AUTO) 3.2 % (0.0-6.0); HEMATOCRIT 35 % (39-51); HEMOGLOBIN 12.2 g/dL (13.5-17.5); LYMPHOCYTES # (AUTO) 0.8 /CMM (0.8-4.8); LYMPHOCYTES % (AUTO) 11.7 % (20.0-44.0); MEAN CORPUSCULAR HGB CONC 35 g/dl (31.0-36.0); MEAN CORPUSCULAR VOLUME 91 fL (80-96); MONOCYTES # (AUTO) 0.4 /CMM (0.1-1.30); MONOCYTES % (AUTO) 6.2 % (2.0-12.0); NEUTROPHILS # (AUTO) 5.5 /CMM (1.8-8.9); PLATELET COUNT (AUTO) 156 /CMM (150-450); RED BLOOD CELL COUNT(AUTO) 3.83 MIL/uL (4.5-6.0); WHITE BLOOD COUNT (AUTO) 7.1 K/uL (4.3-11.0)
[2019-03-11 19:48] LABS: ALBUMIN 3.5 g/dL (3.4-5.0); BILIRUBIN,DIRECT 0.2 mg/dL (0.0-0.2); BILIRUBIN,TOTAL 1.8 mg/dL (0.2-1.0); TOTAL PROTEIN, SERUM 6.5 g/dL (6.4-8.2)
[2019-03-11 20:13] LABS: APPEARANCE,URINE Slightly Cloudy (CLEAR); BILIRUBIN,URINE SMALL (NEGATIVE); BLOOD, URINE Moderate Ery/uL (NEGATIVE); COLOR,URINE Dark (YELLOW); KETONES,URINE Trace (NEGATIVE); LEUKOCYTE ESTERASE ,URINE Large (NEGATIVE); NITRITE, URINE Positive (NEGATIVE); PROTEIN,URINE 100 mg/dl (NEGATIVE); UGLUCOSE Negative (NEGATIVE)
[2019-03-11 20:25] LABS: BACTERIA,URINE Many /HPF (None Seen); SQUAMOUS EPITHELIAL CELL,UR Few /HPF (None Seen)
--- NOTE | 2019-03-11 20:25 | NUR ---
pt was assisted to get OOB . pt was able to stand on his feet and ambulate slowly w/ small steps and minimal assistance. made aware.
[2019-03-11 20:26] LABS: WBC,URINE 21-50 /HPF (0-3)
--- NOTE | 2019-03-11 20:31 | NUR ---
at the bed side
[2019-03-11] MEDS ORDERED: CEPHALEXIN MONOHYDRATE 500 MG CAPSULE PO ONE ×2 (21:00→21:03)
--- NOTE | 2019-03-11 22:05 | NUR ---
[facility] ETA 15-25 MINS
--- NOTE | 2019-03-11 22:37 | NUR ---
Patient is resting comfortably in bed with eyes closed. Easily aroused. VSS. family at the bed side. awating for transportation.
--- NOTE | 2019-03-11 23:05 | NUR ---
IV removed. Catheter intact and site benign. Pressure and 4x4 applied to site. No bleeding noted.Patient discharged to home in stable condition. Rx and Written and verbal after care instructions given. Patient verbalizes understanding of instruction. pt was picked up by ambulance via [facility]
[2019-03-11 23:06] VITALS: BP 167/61
== END 2019-03-11 23:07 | disposition home or self-care (01) ==
LOC: ER 18:31
DX: R53.1 Weakness (principal); R07.89 Other chest pain; G30.9 Alzheimer's disease, unspecified; I10 Essential (primary) hypertension; Z59.0 Homelessness; Z95.5 Presence of coronary angioplasty implant and graft; Z79.899 Other long term (current) drug therapy
CPT/HCPCS: 36415; 71045; 80048; 80076; 81001; 84443; 84484; 85025; 87040 ×2; 87077; 87086; 87186; 93005; 99284; J7040; 81000-TC

== ENCOUNTER 2021-08-30 07:48 | Emergency (ER) | payer MEDICARE, OTHER ==
[~2021-08-30] VITALS: Ht 172.7 cm; Wt 74.8 kg
[~2021-08-30 07:48] MED LIST changes: -DICL1ADH11 TP; +DICL1PAT11 TP; -KETO120S3 TP; +KETO120S5 TP; -LISI-605 PO; +LISI10TA30 PO
--- NOTE | 2021-08-30 07:52 | NUR ---
TO ER BED 8, BIBRA 39 FROM HOME C/O MORE WEAK THAN USUAL PER EMS "FAMILY SAID HE'S HARD TO WAKE UP THAN USUAL APPEARS MORE WEAK" BG112, NON VERBAL, CONTRACTED, BREATHING EVEN AND NON LABORED, AWAITING MD ORDERS
[2021-08-30] MEDS ORDERED: IV NS 0.9% 1,000 ML BAG IV ONE (08:00)
--- NOTE | 2021-08-30 08:02 | NUR ---
IV CANNULA G20 INSERTED ON LEFT BRACHIAL AREA. BLOOD DRAWN AND GIVEN TO SCIENCES DEAN.
[2021-08-30 08:08] LABS: BASOPHILS % (AUTO) 0.4 % (0.0-2.0); EOSINOPHILS % (AUTO) 7.3 % (0.0-6.0); HEMATOCRIT 39 % (39-51); HEMOGLOBIN 13.4 g/dL (13.5-17.5); LYMPHOCYTES # (AUTO) 1.7 K/uL (0.8-4.8); LYMPHOCYTES % (AUTO) 20.6 % (20.0-44.0); MEAN CORPUSCULAR HGB CONC 35 g/dl (31.0-36.0); MEAN CORPUSCULAR VOLUME 93 fL (80-96); MONOCYTES # (AUTO) 0.6 K/uL (0.1-1.30); MONOCYTES % (AUTO) 7.6 % (2.0-12.0); NEUTROPHILS # (AUTO) 5.2 K/uL (1.8-8.9); NEUTROPHILS % (AUTO) 64.1 % (43.0-81.0); PLATELET COUNT (AUTO) 173 K/uL (150-450); RED BLOOD CELL COUNT(AUTO) 4.17 MIL/uL (4.5-6.0); WHITE BLOOD COUNT (AUTO) 8.1 K/uL (4.3-11.0)
--- NOTE | 2021-08-30 08:15 | NUR ---
MOVE SHEET SUBMITTED AND CALLED FOR BED.
--- NOTE | 2021-08-30 08:17 | NUR ---
BS 79. DR HUANG AWARE
--- NOTE | 2021-08-30 08:17 | NUR ---
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
[2021-08-30 08:22] LABS: SERUM AMMONIA 14 umol/L (11-32)
--- NOTE | 2021-08-30 08:35 | NUR ---
LAB CALLED CELINA HUANG NOTIFIED.
[2021-08-30 08:37] LABS: ALANINE AMINOTRANSFERASE 16 U/L (12-78); ALBUMIN 3.6 g/dL (3.4-5.0); ALKALINE PHOSPHATASE 89 U/L (46-116); ASPARTATE AMINOTRANSFERASE 17 U/L (15-37); BILIRUBIN,DIRECT 0.2 mg/dL (0.0-0.2); BILIRUBIN,TOTAL 0.7 mg/dL (0.2-1.0); CALCIUM, SERUM 8.9 mg/dL (8.5-10.1); CARBON DIOXIDE 29 mmol/L (21-32); CHLORIDE 105 mmol/L (98-107); CREATININE 1.6 mg/dL (0.6-1.3); GLUCOSE 99 mg/dL (74-106); POTASSIUM 4.2 mmol/L (3.5-5.1); SODIUM SERUM 142 mmol/L (136-145); TOTAL PROTEIN, SERUM 6.5 g/dL (6.4-8.2); UREA NITROGEN, BLOOD 27 mg/dL (7-18)
[2021-08-30 08:38] LABS: ACETAMINOPHEN 0 ug/ml (10-30); ALCOHOL, BLOOD < 3 mg/dL (0-0)
--- NOTE | 2021-08-30 08:47 | NUR ---
CALLED FOR MIDLINE.
[2021-08-30 08:48] LABS: THYROID STIMULATING HORMONE 2.276 uIU/mL (0.358-3.74)
--- NOTE | 2021-08-30 08:58 | NUR ---
CALLED LAB TO CLINICAL DERMATOLOGIST BLOOD CULTURE SAMPLE
[2021-08-30 10:14] LABS: BILIRUBIN,URINE NEGATIVE (NEGATIVE); COLOR,URINE YELLOW (YELLOW); LEUKOCYTE ESTERASE ,URINE LARGE (NEGATIVE); NITRITE, URINE POSITIVE (NEGATIVE); PROTEIN,URINE NEGATIVE (NEGATIVE); UGLUCOSE NEGATIVE (NEGATIVE); UROBILINOGEN,URINE 0.2 EU/dL (0.2)
[2021-08-30 10:34] LABS: BACTERIA,URINE Many /HPF (None Seen); RBC,URINE 0-2 /HPF (0-2); WBC,URINE 21-50 /HPF (0-3)
--- NOTE | 2021-08-30 10:56 | NUR ---
[facility] CALLED GEOTHERMAL POWERPLANT SUPERVISOR PAGED.
[2021-08-30] MEDS ORDERED: ASPIRIN 300 MG/SUPP.RECT RC ONE ×2 (11:00→11:01)
[2021-08-30] MEDS ORDERED: CEFTRIAXONE 1 G in IV D5W 50 ML IV ONE (11:30)
--- NOTE | 2021-08-30 12:06 | NUR ---
LAB CALLED CELINA HUANG NOTIFIED.
--- NOTE | 2021-08-30 12:54 | NUR ---
Room Assigned by HS - 310-2
--- NOTE | 2021-08-30 13:09 | NUR ---
REPORT GIVEN TO KINDRA OLGUIN FOR RUTHANN
--- NOTE | 2021-08-30 13:28 | NUR ---
Patient does not wish to proceed with medical care recommended by Dr. Amador. Patient given information related to possible complications, up to and including , which could occur as a result of leaving the hospital at this time. Patient verbalizes understanding of risks involved due to leaving against medical advice. Patient has signed AMA form. Addendum: 08/30/21 at 1328 by JANELLE Patient family does not wish to proceed with medical care recommended by Dr. Amador. Patient given information related to possible complications, up to and including , which could occur as a result of leaving the hospital at this time. Patient verbalizes understanding of risks involved due to leaving against medical advice. Patient has signed AMA form.
[2021-08-30] MEDS ORDERED: CEPH250S PO (13:42)
--- NOTE | 2021-08-30 14:08 | NUR ---
[facility]ORT [facility]IA [facility] ETA 30 MINS.
[2021-08-30 15:19] VITALS: BP 134/71
--- NOTE | 2021-08-30 15:19 | NUR ---
PICKED UP BY TRANSPORT IN STABLE CONDITION
== END 2021-08-30 15:20 | disposition left against medical advice (07) ==
LOC: ER 07:50 → UNDOADMIN 13:00 → TELE 13:00
DX: I21.4 Non-ST elevation (NSTEMI) myocardial infarction (principal); N39.0 Urinary tract infection, site not specified; E86.0 Dehydration; R13.10 Dysphagia, unspecified; G30.9 Alzheimer's disease, unspecified; F02.80 Dementia in other diseases classified elsewhere, unspecified severity, without behavioral disturbance, psychotic disturbance, mood disturbance, and anxiety; Z20.822 Contact with and (suspected) exposure to COVID-19; I25.10 Atherosclerotic heart disease of native coronary artery without angina pectoris; Z95.5 Presence of coronary angioplasty implant and graft; Z68.25 Body mass index [BMI] 25.0-25.9, adult; R62.7 Adult failure to thrive; I25.2 Old myocardial infarction; I10 Essential (primary) hypertension; R47.01 Aphasia; Z53.29 Procedure and treatment not carried out because of patient's decision for other reasons
CPT/HCPCS: 36410; 36415; 70450; 71045; 80048; 80076; 80143; 80307; 80320; 81001; 82140; 82962; 83605; 84443; 84484 ×3; 85025; 85730; 87040 ×2; 87077; 87086; 87186; 87426; 93005; 96361; 96365; 99291; J0696; J7030; J7060; C9803; G0480